=== PATIENT | male | born 1965 | race Hispanic/Latino ===

== ENCOUNTER 2021-02-25 16:44 | Emergency (ER) | payer OTHER ==
[~2021-02-25] VITALS: Ht 165.1 cm; Wt 99.8 kg
[2021-02-25] MEDS ORDERED: TRAZODONE HCL100 MG PO (17:53)
[2021-02-25] MEDS ORDERED: PROZAC40 MG PO (17:53)
[2021-02-25] MEDS ORDERED: LANTUS100 UNITS/ SUB-Q (17:54)
[2021-02-25] MEDS ORDERED: GLIPIZIDE ER5 MG PO (17:54)
[2021-02-25] MEDS ORDERED: LIPITOR20 MG PO (17:54)
[2021-02-25] MEDS ORDERED: METFORMIN HCL1000 M2 PO (17:54)
[2021-02-25] MEDS ORDERED: LISINOPRIL20 MG PO (17:55)
[2021-02-25] MEDS ORDERED: LEVOTHYROXINE125 MC1 PO (17:55)
[2021-02-25] MEDS ORDERED: FLAGYL500 MG PO (17:56)
[2021-02-25] MEDS ORDERED: CIPRO500 MG PO (17:56)
== END 2021-02-25 20:52 | disposition home or self-care (01) ==
LOC: ED 16:44
DX: K57.32 Diverticulitis of large intestine without perforation or abscess without bleeding (principal); Z88.8 Allergy status to other drugs, medicaments and biological substances; Z79.4 Long term (current) use of insulin; Z79.899 Other long term (current) drug therapy
CPT/HCPCS: 74177; 80053; 81001; 83690; 85025; 96375; 99284-25; J2270; J2405; J7030; Q9967

== ENCOUNTER 2021-12-26 10:36 | Emergency (ER) | payer OTHER ==
[~2021-12-26] VITALS: Ht 165.1 cm; Wt 89.8 kg
[~2021-12-26 10:36] MED LIST: CIPRO500 MG PO; FLAGYL500 MG PO; GLIPIZIDE ER5 MG PO; LANTUS100 UNITS/ SUB-Q; LEVOTHYROXINE125 MC1 PO; LIPITOR20 MG PO; LISINOPRIL20 MG PO; METFORMIN HCL1000 M2 PO; PROZAC40 MG PO; TRAZODONE HCL100 MG PO
[2021-12-26] MEDS ORDERED: OZEMPIC0.25 MG/0. SUB-Q (10:59)
[2021-12-26] MEDS ORDERED: LOMOTIL TABLET1 EACH PO (12:21)
[2021-12-26] MEDS ORDERED: ONDANSETRON ODT8 MG PO (12:21)
== END 2021-12-26 12:43 | disposition home or self-care (01) ==
LOC: ED 10:36
DX: K52.9 Noninfective gastroenteritis and colitis, unspecified (principal); E11.9 Type 2 diabetes mellitus without complications; I10 Essential (primary) hypertension; Z88.8 Allergy status to other drugs, medicaments and biological substances; Z79.899 Other long term (current) drug therapy; Z79.84 Long term (current) use of oral hypoglycemic drugs
CPT/HCPCS: 36415; 80053; 85025; 85060; 87045; 87493; 99284; J7030